=== PATIENT | male | born 1995 | race Caucasian/White ===

== ENCOUNTER 2022-05-14 00:50 | Emergency (ER) | payer MEDICAID ==
[~2022-05-14] VITALS: Ht 170.2 cm; Wt 110.2 kg
[2022-05-14 01:06] VITALS: BP 134/77
--- NOTE | 2022-05-14 04:19 | NUR ---
PATIENT LEFT WITHOUT BEING SEEN BY DR. Sanchez. NO FURTHER CARE PROVIDED FOR PATIENT.
--- NOTE | 2022-05-14 04:19 | NUR ---
PATIENT WAS CALLED TO BED 12 FROM LOBBY, BUT WAS NOT FOUND IN LOBBY.
== END 2022-05-14 04:19 | disposition left against medical advice (07) ==
LOC: MED 00:50
DX: H92.01 Otalgia, right ear (principal); Z53.21 Procedure and treatment not carried out due to patient leaving prior to being seen by health care provider